=== PATIENT | male | born 1930 | race Caucasian/White ===

== ENCOUNTER 2016-12-30 09:39 | Emergency (ER) | payer MEDICARE ==
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
[2016-12-30 11:07] LABS: URINE APPEARANCE CLEAR; URINE BILIRUBIN NEGATIVE (NEGATIVE); URINE BLOOD NEGATIVE (NEGATIVE); URINE COLOR YELLOW; URINE GLUCOSE (UA) NEGATIVE (NEGATIVE); URINE KETONE NEGATIVE (NEGATIVE); URINE LEUKOCYTE ESTERASE NEGATIVE (NEGATIVE); URINE NITRITE NEGATIVE (NEGATIVE); URINE PROTEIN NEGATIVE (NEGATIVE); URINE UROBILINOGEN 0.2 E.U./dL (0.20 - 1.00)
[2016-12-30 11:08] LABS: BASO % 0.7 % (0-6); EOS % 1.2 % (0-6); GRAN % 72.8 % (47-80); HEMATOCRIT 41.6 % (42.0-52.0); HEMOGLOBIN 13.5 gm/dl (14.0-18.0); LYMPH % 15.4 % (16-45); MEAN CELL VOLUME 89.5 fl (81-97); MEAN CORPUSCULAR HGB CONC 32.5 g/dl (32-36); MEAN PLATELET VOLUME 9.1 fl (7.4-10.4); MONO % 9.9 % (0-9); PLATELET COUNT 334 K/uL (130-400); RED BLOOD COUNT 4.65 M/uL (4.40-5.70); RED CELL DISTRIBUTION WIDTH 16.8 % (11.5-14.5)
[2016-12-30 11:18] LABS: ALB/GLOB RATIO 1.1 (1.1-1.8); ALKALINE PHOSPHATASE 108 U/L (38-126); ALT/SGPT 33 U/L (21-72); ANION GAP 8.3 (7-16); AST/SGOT 19 U/L (17-59); BILIRUBIN,TOTAL 0.59 mg/dL (0.2-1.3); BLOOD UREA NITROGEN 11 mg/dL (9-20); CARBON DIOXIDE 24.7 mmol/L (22-30); CREATININE 0.7 mg/dL (0.66-1.25); EST GLOMERULAR FILTRATION RATE > 60 ml/min; GLUCOSE,RANDOM 106 mg/dL (70-110); TOTAL PROTEIN 7.5 gm/dL (6.3-8.2)
[2016-12-30 11:19] LABS: ACETAMINOPHEN < 10.0 ug/mL (10.0-30.0); SALICYLATE < 1.0 mg/dL (2.8-20.0)
[2016-12-30 11:53] LABS: AMPHETAMINE SCREEN URINE NOT DETECTED; BARBITURATE SCREEN URINE NOT DETECTED; BENZODIAZEPINE SCREEN URINE NOT DETECTED; METHADONE SCREEN URINE NOT DETECTED; OPIATE SCREEN URINE NOT DETECTED; THC SCREEN URINE NOT DETECTED; TRICYCLIC ANTIDEPRESSANT SCRN NOT DETECTED
[2016-12-30 11:54] LABS: COCAINE SCREEN URINE NOT DETECTED; METHAMPHETAMINE SCREEN NOT DETECTED; OXYCODONE SCREEN URINE NOT DETECTED; PHENCYCLIDINE SCREEN URINE NOT DETECTED; PROPOXYPHENE SCREEN URINE NOT DETECTED
== END 2016-12-30 15:30 ==
LOC: ER 09:39
DX: F03.91 Unspecified dementia, unspecified severity, with behavioral disturbance (principal); I10 Essential (primary) hypertension; Z87.891 Personal history of nicotine dependence; Z79.899 Other long term (current) drug therapy
CPT/HCPCS: 99285 ×2; 85025; 80053; 81003; 80305; G0480 ×3; 80320; 80329

== ENCOUNTER 2017-04-05 15:03 | Emergency (ER) | payer MEDICARE ==
--- NOTE | 2017-04-05 15:27 | Emergency Department Record ---
History of Present Illness - General Chief Complaint: Fall Injury Stated Complaint: FALL Time Seen by Provider: 04/05/17 15:18 Mode of Arrival: EMS - History of Present Illness Initial Comments: fall three days ago and he is complaining of pain in the left lower leg midcalf down. ecchymosis of the lateral ankle and he doesn't remember the fall because of dementia. He lives at [facility]. No other injuries Onset/Timin -: Days(s) When Fall Occurred: Unsure Fall Witnessed: No Place Fall Occurred: Other Loss of Consciousness: None Prolonged Down Time?: No Symptoms Prior to Fall: None Severity: Moderate Severity scale (1-10): 8 Quality: Sharp - [place] Coma Scale Eye Response: (4) Open spontaneously Motor Response: (6) Obeys commands Verbal Response: (5) Oriented Vilma Total: 15 - Related Data Home Medications Medication Instructions Recorded Confirmed Last Taken Aspirin [Aspir-Low] 81 mg PO DAILY 04/05/17 04/05/17 04/05/17 Donepezil HCl [Aricept] 5 mg PO DAILY 04/05/17 04/05/17 04/04/17 Previous Rx's Medication Instructions Recorded Acetaminophen [Tylenol 325Mg] 650 mg PO Q6H #100 tablet 04/05/17 Allergies Allergy/AdvReac Type Severity Reaction Status Date / Time No Known Drug Allergies Allergy Verified 12/23/16 01:55 Travel Screening - Travel/Exposure Within Last 30 Days Have you traveled within the last 30 days?: No - Travel/Exposure Within Last Year Have you traveled outside the [place] in the last year?: No - Additonal Travel Details Have you been exposed to anyone with a communicable illness?: No - Travel Symptoms Symptom Screening: None Review of Systems Reviewed: No additional complaints except as noted below Constitutional: Reports: As per HPI. Denies: Chills, Fever, Malaise, Night sweats, Weakness, Weight change Eyes: Reports: As per HPI. Denies: Eye discharge, Eye pain, Photophobia, Vision change ENT: Reports: As per HPI. Denies: Congestion, Dental pain, Ear pain, Epistaxis , Hearing loss, Throat pain Respiratory: Reports: As per HPI. Denies: Cough, Dyspnea, Hemoptysis, Stridor, Wheezes Cardiovascular: Reports: As per HPI. Denies: Arrhythmia, Chest pain, Dyspnea on exertion, Edema, Murmurs, Orthopnea, Palpitations, Paroxysmal nocturnal dyspnea, Rheumatic Fever, Syncope Endocrine: Reports: As per HPI. Denies: Fatigue, Heat or cold intolerance, Polydipsia, Polyuria Gastrointestinal: Reports: As per HPI. Denies: Abdominal pain, Constipation, Diarrhea, Hematemesis, Hematochezia, Melena, Nausea, Vomiting Genitourinary: Reports: As per HPI. Denies: Dysuria, Frequency, Hematuria, Incontinence, Retention, Testicular pain, Testicular mass, Urgency Musculoskeletal: Reports: As per HPI. Denies: Arthralgia, Back pain, Gout, Joint swelling, Myalgia, Neck pain Skin: Reports: As per HPI. Denies: Bruising, Change in color, Change in hair/ nails, Lesions, Pruritus, Rash Neurological: Reports: As per HPI. Denies: Abnormal gait, Confusion, Headache, Numbness, Paresthesias, Seizure, Tingling, Tremors, Vertigo, Weakness Psychiatric: Reports: As per HPI. Denies: Anxiety, Auditory hallucinations, Depression, Homicidal thoughts, Suicidal thoughts, Visual hallucinations Hematological/Lymphatic: Reports: As per HPI. Denies: Anemia, Blood Clots, Easy bleeding, Easy bruising, Swollen glands Past Medical History - SOCIAL HISTORY Smoking Status: Former smoker Alcohol Use: None Drug Use: None - RESPIRATORY Hx Respiratory Disorders: No - CARDIOVASCULAR Hx Cardio Disorders: Yes Hx Hypertension: Yes - NEURO Hx Neuro Disorders: No - GI Hx GI Disorders: No - Hx Genitourinary Disorders: No Comment:: recent conroy for hematuria - ENDOCRINE Hx Endocrine Disorders: No - MUSCULOSKELETAL Hx Musculoskeletal Disorders: Yes Hx Arthritis: Yes (Hands) - PSYCH Hx Psych Problems: No - HEMATOLOGY/ONCOLOGY Hx Hematology/Oncology Disorders: No Family Medical History Any Significant Family History?: No Family Hx Comment (NOT TO BE USED IN PLACE OF ITEMS BELOW): unknown Physical Exam - General General Appearance: Alert, Oriented x3, Cooperative, No acute distress - Head Head exam: Normal inspection - Eye Eye exam: Normal appearance, PERRL Pupils: Normal accommodation - ENT ENT exam: Normal exam, Mucous membranes moist, Normal external ear exam, Normal orophraynx, TM's normal bilaterally Ear exam: Normal external inspection. negative: External canal tenderness Nasal Exam: Normal inspection. negative: Discharge, Sinus tenderness Mouth exam: Normal external inspection, Tongue normal Teeth exam: Normal inspection. negative: Dental caries Throat exam: Normal inspection. negative: Tonsillar erythema, Tonsillar exudate - Neck Neck exam: Normal inspection, Full ROM. negative: Tenderness - Respiratory Respiratory exam: Normal lung sounds bilaterally. negative: Respiratory distress - Cardiovascular Cardiovascular Exam: Regular rate, Normal rhythm, Normal heart sounds - GI/Abdominal GI/Abdominal exam: Soft, Normal bowel sounds. negative: Tenderness - Rectal Rectal exam: Deferred - exam: Deferred - Extremities Extremities exam: Normal inspection, Full ROM, Normal capillary refill, Tenderness (calf pain and pain in the ankle and mostly lateral ankle. left lower leg) - Back Back exam: Reports: Normal inspection, Full ROM. Denies: Muscle spasm, Rash noted, Tenderness - Neurological Neurological exam: Alert, Normal gait, Oriented X3, Reflexes normal - Psychiatric Psychiatric exam: Normal affect, Normal mood - Skin Skin exam: Dry, Intact, Normal color, Warm Course Vital Signs 04/05/17 15:12 Temperature 98.5 F Pulse Rate 81 Respiratory 18 Rate Blood Pressure 136/83 Pulse Ox 98 - Reevaluation(s) Reevaluation #1: gastronemius muscle strain and partial tear, rom of ankle good, standing without problems 04/05/17 17:51 Reevaluation #2: venous dopler of the left lower leg shows a hematoma of the calf muscle and it is the painful area from the muscle tear. Partial patient is able to walk on it. 04/05/17 18:36 Medical Decision Making - Data Complexity MDM Data: X-Ray Ordered and/or Reviewed (No fractures seen ankle or lower leg) Disposition Clinical Impression: Contusion of ankle or foot, left Strain of calf muscle Qualifiers: Encounter type: initial encounter Laterality: left Qualified Code(s): S86.812A - Strain of other muscle(s) and tendon(s) at lower leg level, left leg, initial encounter Disposition: Home, Self-Care Condition: (1) Good Additional Instructions: follow up with Dr. Holman in 1-2 weeks tylenol for pain 650 mg every 6 hours as needed jennifer wrap of the lower leg use wheel chair as much as possible for two weeks Prescriptions: Acetaminophen [Tylenol 325Mg] 650 mg PO Q6H #100 tablet Forms: Patient Portal Access Time of Disposition: 18:52
--- NOTE | 2017-04-06 15:19 | RADIOLOGY REPORT ---
EXAM: LEFT ANKLE, THREE VIEWS HISTORY: PATIENT HAS PAINFUL LEFT CALF. HISTORY OF FALL. TECHNIQUE: Three views of the left ankle were provided without a comparison examination. FINDINGS: Osteopenia of the osseous structures is noted. There is no radiographic evidence of a fracture or dislocation of the left ankle. The ankle mortise is intact. IMPRESSION: OSTEOPENIA OF THE OSSEOUS STRUCTURES IS NOTED WITHOUT RADIOGRAPHIC EVIDENCE OF AN ACUTE FRACTURE OR DISLOCATION OF THE LEFT ANKLE. JOB NUMBER: [id number] MTDD
--- NOTE | 2017-04-07 07:12 | RADIOLOGY REPORT ---
EXAM: LEFT TIBIA AND FIBULA, TWO VIEWS HISTORY: PATIENT HAS A HISTORY OF FALL. TECHNIQUE: Two views of the left tibia and fibula were provided without comparison studies. FINDINGS: Osteopenia of the osseous structures is noted. There is no radiographic evidence of a fracture or dislocation of the left tibia and fibula. Moderate osteoarthritic changes of the left knee are identified. Vascular calcification is noted. IMPRESSION: NO RADIOGRAPHIC EVIDENCE OF AN ACUTE PROCESS INVOLVING THE LEFT TIBIA AND FIBULA. JOB NUMBER: [id number] MTDD
--- NOTE | 2017-04-07 07:17 | US VENOUS DOPPLER REPORT ---
EXAM: LEFT LOWER EXTREMITY DUPLEX VENOUS DOPPLER HISTORY: PAIN. TECHNIQUE: Transverse and longitudinal sonographic images of the left lower extremity deep venous system were obtained. Doppler and spectral analysis with color flow was utilized. Comparison: None. FINDINGS: Normal compression and augmentation throughout the left lower extremity deep venous system. Negative for deep vein thrombosis. Doppler and spectral analysis with color flow was utilized. Normal waveforms throughout. In the region of the patient's clinical/palpable abnormality in the left calf there is a poorly defined complex mass. This measures approximately 12 x 2 cm. This could relate to hematoma. Other etiologies are not excluded. IMPRESSION: NEGATIVE FOR DVT. POSSIBLE HEMATOMA IN THE LEFT CALF. JOB NUMBER: [id number] MTDD
== END 2017-04-05 19:53 | disposition home or self-care (01) ==
LOC: ER 15:03
DX: S86.812A Strain of other muscle(s) and tendon(s) at lower leg level, left leg, initial encounter (principal); S90.02XA Contusion of left ankle, initial encounter; S90.32XA Contusion of left foot, initial encounter; I10 Essential (primary) hypertension; Z87.891 Personal history of nicotine dependence; F03.90 Unspecified dementia, unspecified severity, without behavioral disturbance, psychotic disturbance, mood disturbance, and anxiety; W19.XXXA Unspecified fall, initial encounter; Y92.129 Unspecified place in nursing home as the place of occurrence of the external cause
CPT/HCPCS: 99283; 99284